=== PATIENT | female | born 1995 | race Caucasian/White ===

== ENCOUNTER → 2019-07-12 | Outpatient (CLI) | payer OTHER ==
--- NOTE | 2019-07-12 16:28 | Diagnostic Imaging Report ---
PROCEDURE: US Non-ob pelvis comp/trans. TECHNIQUE: Multiple real-time grayscale images were obtained of the pelvis in various projections endovaginally. Transabdominal imaging was also performed. INDICATION: Secondary amenorrhea. FINDINGS: Uterus measures 7.1 x 4.2 x 3.1 cm. Endometrial thickness is 9 mm. There are no discrete myometrial or endometrial masses. Both ovaries are normal in size and morphology and demonstrate normal blood flow. There are multiple follicles in both ovaries. There are no adnexal masses. There are some nabothian cysts. There is no free pelvic fluid. IMPRESSION: Essentially unremarkable pelvic ultrasound. Dictated by: Dictated on workstation # [id number]
== END ==
LOC: RAD 14:06
PROVIDERS: ATTEND Obstetrics & Gynecology
DX: N91.1 Secondary amenorrhea (principal)
CPT/HCPCS: 76830; 76856

== ENCOUNTER 2019-09-27 14:30 | Outpatient (RCR) | payer OTHER ==
[2019-08-17 14:58] LABS: BASOPHILS % (AUTO) 0 % (0-10); EOSINOPHILS # (AUTO) 0.2 10^3/uL (0.0-0.3); EOSINOPHILS % (AUTO) 2 % (0-10); HEMATOCRIT 43 % (35-52); HEMOGLOBIN 14.8 G/DL (11.5-16.0); LYMPHOCYTES # (AUTO) 2.3 X 10^3 (1.0-4.0); LYMPHOCYTES % (AUTO) 26 % (12-44); MEAN CORPUSCULAR HEMOGLOBIN 30 PG (25-34); MEAN CORPUSCULAR HGB CONC 34 G/DL (32-36); MEAN CORPUSCULAR VOLUME 87 FL (80-99); MONOCYTES # (AUTO) 0.6 X 10^3 (0.0-1.0); MONOCYTES % (AUTO) 7 % (0-12); NEUTROPHILS # (AUTO) 5.9 X 10^3 (1.8-7.8); NEUTROPHILS % (AUTO) 65 % (42-75); PLATELET COUNT 339 10^3/uL (130-400); RED CELL DISTRIBUTION WIDTH 12.9 % (10.0-14.5)
[2019-08-17 15:14] LABS: ABSOLUTE RETIC # 77 10e9/L (24-90); RETICULOCYTE % 1.51 % (0.50-2.40)
[2019-08-17 15:20] LABS: ALANINE AMINOTRANSFERASE 21 U/L (0-55); ALBUMIN 4.6 GM/DL (3.2-4.5); ALKALINE PHOSPHATASE 84 U/L (40-136); BILIRUBIN,TOTAL 0.2 MG/DL (0.1-1.0); BUN/CREATININE RATIO 15; CALCIUM 9.3 MG/DL (8.5-10.1); CARBON DIOXIDE 19 MMOL/L (21-32); CHLORIDE 106 MMOL/L (98-107); CREATININE SERUM 0.82 MG/DL (0.60-1.30); GFR ESTIMATED > 60; GLUCOSE 104 MG/DL (70-105); POTASSIUM 3.7 MMOL/L (3.6-5.0); SODIUM 138 MMOL/L (135-145); TOTAL PROTEIN 7.9 GM/DL (6.4-8.2)
[2019-09-27 14:49] LABS: BASOPHILS % (AUTO) 0 % (0-10); EOSINOPHILS # (AUTO) 0.2 10^3/uL (0.0-0.3); EOSINOPHILS % (AUTO) 3 % (0-10); HEMATOCRIT 42 % (35-52); HEMOGLOBIN 14.1 G/DL (11.5-16.0); LYMPHOCYTES # (AUTO) 2.2 X 10^3 (1.0-4.0); LYMPHOCYTES % (AUTO) 32 % (12-44); MEAN CORPUSCULAR HEMOGLOBIN 29 PG (25-34); MEAN CORPUSCULAR HGB CONC 34 G/DL (32-36); MEAN CORPUSCULAR VOLUME 85 FL (80-99); MEAN PLATELET VOLUME 9.7 FL (7.4-10.4); MONOCYTES # (AUTO) 0.5 X 10^3 (0.0-1.0); MONOCYTES % (AUTO) 7 % (0-12); NEUTROPHILS # (AUTO) 4.1 X 10^3 (1.8-7.8); NEUTROPHILS % (AUTO) 59 % (42-75); PLATELET COUNT 349 10^3/uL (130-400); RED CELL DISTRIBUTION WIDTH 12.9 % (10.0-14.5)
== END 2019-11-15 | disposition home or self-care (01) ==
LOC: ONC 14:30
PROVIDERS: ATTEND Internal Medicine Hematology & Oncology
DX: N91.1 Secondary amenorrhea (principal); R06.02 Shortness of breath; R51 Headache; Z90.89 Acquired absence of other organs; Z86.2 Personal history of diseases of the blood and blood-forming organs and certain disorders involving the immune mechanism
CPT/HCPCS: 80053; 82668; 82728; 83540; 85025; 85045; 99213; 99214

== ENCOUNTER → 2021-10-26 | Outpatient (CLI) | payer OTHER ==
[2021-10-26 09:13] LABS: ALBUMIN 4.1 GM/DL (3.2-4.5); BILIRUBIN,TOTAL 0.4 MG/DL (0.1-1.0); CALCIUM 9.1 MG/DL (8.5-10.1); CREATININE SERUM 0.74 MG/DL (0.60-1.30); POTASSIUM 3.8 MMOL/L (3.6-5.0); TOTAL PROTEIN 7.5 GM/DL (6.4-8.2)
== END ==
LOC: LAB 07:55
PROVIDERS: ATTEND Nurse Practitioner
DX: L65.9 Nonscarring hair loss, unspecified (principal); L68.0 Hirsutism
CPT/HCPCS: 36415; 80053; 83525; 84270; 84403; 84443

== ENCOUNTER → 2021-12-17 | Outpatient (CLI) | payer OTHER | LOC: LAB 09:58 | PROVIDERS: ATTEND Nurse Practitioner | DX: N93.8 Other specified abnormal uterine and vaginal bleeding (principal) | CPT/HCPCS: 36415; 82670; 83001; 83002; 84144; 84146 ==

== ENCOUNTER 2022-06-21 03:26 | Emergency (ER) | payer OTHER ==
[2022-06-21] MEDS ORDERED: ONDANSETRON 4 MG (ZOFRAN) ORAL DISSOLVE TAB SL STA (04:01)
[2022-06-21] MEDS ORDERED: ANTACID SUSP 30 ML UDC (MYLANTA) PO ONE (04:15)
[2022-06-21] MEDS ORDERED: LIDOCAINE 2% VISCOUS 15 ML UDC PO ONE (04:15)
[2022-06-21 05:14] VITALS: BP 131/90
[2022-06-21] MEDS ORDERED: PANTOPRAZOLE 40 MG (PROTONIX) TAB PO ONE (05:15)
--- NOTE | 2022-06-21 05:21 | ED Chest Pain ---
General Chief Complaint: Chest Pain Stated Complaint: CP Nursing Triage Note: PT ARRIVAL TO ER VIA PRIVATE VEHICLE WITH COMPLAINT OF CHEST PAIN. PT STATES THAT PAIN WOKE HER UP AT 0000. PT STATES THAT SHE TOOK 2 TUMS AND 1 PEPCID WITHOUT RELIEF. PT ALSO HAVING SOME TINGLING IN RIGHT SHOULDER AND BOTH HANDS. PAIN IS BURNING LIKE PAIN AT 7/10. Source: patient Exam Limitations: no limitations History of Present Illness Date Seen by Provider: Jun 21, 2022 Time Seen by Provider: 03:42 Initial Comments This 27-year-old young lady presents to the emergency room with complaints of chest pain in the central chest and radiating to her back that woke her around midnight. She was lying flat in bed when symptoms started. She took Tums without any improvement. She later took Pepcid also without improvement. She reported having some tingling's in her hands and right shoulder. The pain is described as a burning throbbing. She denies ever having had this problem in the past. She had a mild cough when the pain was more intense. She denies any fever or nausea. She reports quitting phentermine 1 to 2 weeks ago. Pain does not change with eating or drinking. Her last solid food was a cheeseburger at 1700. She denies any recent alcohol use. Her primary care provider is Leslie marie. She reports pain at present is 7/10. Allergies and Home Medications Allergies Coded Allergies: No Known Drug Allergies (Unverified , 06/21/22) Patient Home Medication List Home Medication List Reviewed: Yes Review of Systems Review of Systems Constitutional: no symptoms reported EENTM: No Symptoms Reported Respiratory: No Symptoms Reported Cardiovascular: See HPI Gastrointestinal: No Symptoms Reported Genitourinary: No Symptoms Reported Musculoskeletal: no symptoms reported Skin: no symptoms reported Psychiatric/Neurological: See HPI Endocrine: No Symptoms Reported Past Djwskgj-Lhfecl-Jomljc Hx Patient Social History Tobacco Use?: No Use of E-Cig and/or Vaping dev: No Substance use?: No Alcohol Use?: Yes Alcohol type: Beer, Hard Liquor, Wine Alcohol Frequency: Several times a month Pt feels they are or have been: No Immunizations Up To Date Influenza Vaccine Up-to-Date: Yes; Up-to-Date Second COVID19 Vaccination David: 12/27 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 [employer]: [employer] Past Medical History Surgeries: Yes Orthopedic (Shoulder x2, thumb) Respiratory: No Cardiac: No Neurological: No : No Reproductive Disorders: No Genitourinary: No Gastrointestinal: No Musculoskeletal: No Endocrine: No HEENT: No Cancer: No Psychosocial: No Integumentary: No Family Medical History Reviewed and Corrections made Heart Disease Physical Exam Vital Signs Vital Signs - First Documented 06/21/22 03:35 Temp 36.1 Pulse 102 Resp 20 B/P (MAP) 129/104 (112) Pulse Ox 100 O2 Delivery Room Air Capillary Refill : Less Than 3 Seconds Height, Weight, BMI Height: '" Weight: lbs. oz. kg; BMI Method: General Appearance: WD/WN, Anxious HEENT: TMs Normal, Normal ENT Inspection Neck: Normal Inspection Respiratory: Chest Non Tender, Lungs Clear, Normal Breath Sounds, No Accessory Muscle Use, No Respiratory Distress Cardiovascular: Regular Rate, Rhythm, No Edema, No Murmur Gastrointestinal: Normal Bowel Sounds, Non Tender, Soft Extremity: Normal Inspection, No Pedal Edema Neurologic/Psychiatric: Alert, Oriented x3, No Motor/Sensory Deficits, Normal Mood/Affect, patient account specialist II-XII Norm as Tested Skin: Normal Color, Warm/Dry Progress/Results/Core Measures Results/Orders My Orders Orders - ALBIN SWAN MD Ekg Tracing (06/21/22 03:40) Ondansetron Oral Dissolve Tab (Zofran (06/21/22 04:01) Lidocaine 2% Viscous 15 Ml (Xylocaine Vi (06/21/22 04:15) Antacid Suspension (Mylanta Suspension (06/21/22 04:15) Pantoprazole Tablet (Protonix Tablet) (06/21/22 05:15) Medications Given in ED Current Medications Medications Dose Ordered Sig/Fantasma Route Start Time Stop Time Status Last Admin Dose Admin Al Hydrox/Mg Hydrox/Simethicone 30 ml ONCE ONCE PO 06/21/22 04:15 06/21/22 04:16 DC 06/21/22 04:37 30 ML Lidocaine HCl 15 ml ONCE ONCE PO 06/21/22 04:15 06/21/22 04:16 DC 06/21/22 04:37 15 ML Pantoprazole Sodium 40 mg ONCE ONCE PO 06/21/22 05:15 06/21/22 05:17 DC 06/21/22 05:25 40 MG Vital Signs/I&O 06/21/22 06/21/22 03:35 05:14 Temp 36.1 Pulse 102 91 Resp 20 16 B/P (MAP) 129/104 (112) 131/90 Pulse Ox 100 99 O2 Delivery Room Air Room Air Blood Pressure Mean: 104 Progress Progress Note : Progress Note Pain significantly improved from 7/10 down to 3/10 with GI cocktail. Patient was pleased with the results. This suggests a gastroesophagitis etiology. See discharge instructions. Initial ECG Impression Date: Jun 21, 2022 Initial ECG Impression Time: 03:42 Initial ECG Rate: 77 Initial ECG Rhythm: Normal Sinus Initial ECG Intervals: Normal Initial ECG Impression: Normal Comment Normal sinus rhythm with no ST elevation or depression. No abnormal intervals or axis deviation. Departure Impression Primary Impression: Atypical chest pain Additional Impression: Gastroesophagitis Disposition: 01 HOME, SELF-CARE Condition: Improved Departure-Patient Inst. Decision time for Depature: 05:17 Referrals: NO,LOCAL PHYSICIAN (PCP/Family) Primary Care Physician Patient Instructions: Acid Reflux and Gastroesophageal Reflux Disease in Adults, Gastritis ED Add. Discharge Instructions: Your pain is likely due to gastroesophagitis and acid reflux based on your response to the numbing medication. You may continue taking Pepcid (famotidine) 20 mg twice daily. You may add omeprazole 20 mg twice daily for additional antiacid therapy. Continue these medications every day for the next 2 weeks. This will reduce stomach acid long enough to allow your stomach and esophagus to heal. Additionally, avoid the following: Eating large meals, eating close to bedtime, caffeine, carbonation, chocolate, citrus fruits and juices, tomato products, spicy foods, fatty/greasy foods, mints, NSAID medications such as ibuprofen or naproxen, tobacco, alcohol, or anything else you know irritates your stomach. Keeping your head elevated in an inclined position when you lay down and may also reduce acid reflux. For acute treatment of pain, you may take Tylenol (acetaminophen) up to 1000 mg every 6 hours as needed. Return to care if you have worsening symptoms despite following these instructions. All discharge instructions reviewed with patient and/or family. Voiced understanding. ALBIN SWAN MD Jun 21, 2022 05:21
== END 2022-06-21 05:30 | disposition home or self-care (01) ==
LOC: EDUNIT# 03:26 → ER 03:29
DX: K21.00 Gastro-esophageal reflux disease with esophagitis, without bleeding (principal)
CPT/HCPCS: 93005

== ENCOUNTER 2022-07-17 11:34 | Outpatient (CLI) | payer OTHER ==
[~2022-07-17] VITALS: Ht 165.1 cm; Wt 86.8 kg
[2022-07-17] MEDS ORDERED: TIRZ2.5P SQ (11:57)
[2022-07-18] MEDS ORDERED: HYDR-3817 PO (14:30)
== END 2022-07-17 12:01 | disposition home or self-care (01) ==
LOC: PREOP 11:34
PROVIDERS: ATTEND Surgery
DX: Z01.818 Encounter for other preprocedural examination (principal)

== ENCOUNTER 2022-07-18 11:42 | Day surgery (SDC) | payer BC, OTHER ==
[~2022-07-18] VITALS: Ht 165 cm; Wt 86.8 kg
[2022-07-18] VITALS (11 sets, daily range): BP systolic 86–139; BP diastolic 48–77
[~2022-07-18 11:42] MED LIST: TIRZ2.5P SQ
[2022-07-18] MEDS ORDERED: ceFAZolin INJECTION 2,000 MG in NS (IVPB) 50 ML IV ONE (13:30)
--- NOTE | 2022-07-18 14:29 | Progress Note-Pre Operative ---
Pre-Operative Progress Note Date H&P Reviewed: Jul 18, 2022 Time H&P Reviewed: 14:25 History & Physical: H&P Reviewed, Patient Examed Pre-Operative Diagnosis: Symptomatic anal fissure DENISE LAWLER APRN Jul 18, 2022 14:29
[2022-07-18] MEDS ORDERED: HYDR-3817 PO (14:30)
[2022-07-18] MEDS ORDERED: morphine INJ 10 MG/ML 1ML (SYR OR VIAL) IVP PRN (14:30)
[2022-07-18] MEDS ORDERED: ONDANSETRON 4 MG/2 ML (SDV) Z0FRAN IVP PRN (14:30)
[2022-07-18] MEDS ORDERED: HYDROcodone/APAP 5 MG/325 MG (LORTAB) TAB PO ONE (14:30)
[2022-07-18] MEDS ORDERED: ACETAMINOPHEN 325 MG TABLET PO PRN (14:30)
--- NOTE | 2022-07-18 14:31 | Discharge Inst-Surgical ---
D/C Lap Instructions-KIDO Reconcile Patient Problems Problems Reviewed?: Yes New, Converted, or Re-Newed RX: RX on Chart Follow Up Appt in 2 weeks Activity as tolerated No driving for 24 hours No driving while on pain medications Incentive Spirometry use every 2 hours while awake Regular Diet Symptoms to Report: Fever over 101 degree F, Nausea/Vomiting Infection Signs and Symptoms to report: Increased redness, Foul odor of wound, Increased drainage Bathing instructions: May shower Operative Area Clean/Dry; Keep incision clean/dry If any problems/questions: Contact your physician or go to Emergency Room DENISE LAWLER APRN Jul 18, 2022 14:30
[2022-07-18] MEDS ORDERED: LIDOCAINE PF 2% 5 ML (XYLOCAINE) VIAL ONE (15:01)
[2022-07-18] MEDS ORDERED: proPOfol 200 MG/20 ML (DIPRIVAN) VIAL IV ONE (15:01)
[2022-07-18] MEDS ORDERED: MIDAZOLAM 2 MG/2 ML (VERSED) VIAL ONE (15:01)
[2022-07-18] MEDS ORDERED: fentaNYL INJ 100 MCG/2 ML AMP ONE ×2 (15:01→16:02)
[2022-07-18] MEDS: LACTATED RINGERS 1,000 ML IV PRN ×2 (15:09→16:24)
[2022-07-18] MEDS ORDERED: LIDOCAINE/EPI 1%-1:100,000 (XYLOCAINE) 10 ML ONE ×2 (15:22→16:04)
[2022-07-18] MEDS ORDERED: BUPIVACAINE 0.5% 30 ML (SENSORCAINE) VIAL ONE (15:22)
[2022-07-18] MEDS ORDERED: KETOROLAC 30 MG/ML VIAL ONE (16:35)
[2022-07-18] MEDS ORDERED: SEVOFLURANE (ULTANE) 15 ML INHAL SOLN ONE (16:35)
--- NOTE | 2022-07-18 16:39 | Progress Note-Post Operative ---
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 Procedure & Operative Findings Date of Procedure 07/18/22 Procedure Performed/Findings anal exam under anesthesia, pudendal nerve block, fissurectomy, formal hemorrhoidectomy single column. Anesthesia Type general LMA with pudendal nerve block and local Estimated Blood Loss Estimated blood loss (mL): minimal Specimens/Packing Specimens Removed anal fissure, ext and int hemorrhoidal cushion. GARRET BUENROSTRO MD Jul 18, 2022 16:39
--- NOTE | 2022-07-18 17:08 | Anesthesia-General Post-Op ---
General Patient Condition Mental Status/LOC: Same as Preop Cardiovascular: Satisfactory Nausea/Vomiting: Absent Respiratory: Satisfactory Pain: Controlled Complications: Absent Post Op Complications Complications None Follow Up Care/Instructions Patient Instructions None needed. Anesthesia/Patient Condition Patient Condition Patient is doing well, no complaints, stable vital signs, no apparent adverse anesthesia problems. No complications reported per nursing. JAZMYNE HARRELL CRNA Jul 18, 2022 17:08
[2022-07-18] MEDS: ONDANSETRON 4 MG/2 ML (SDV) Z0FRAN IVP PRN ×2 (17:11→17:47)
[2022-07-18] MEDS ORDERED: fentaNYL INJ 100 MCG/2 ML AMP IVP ONE (17:15)
[2022-07-18] MEDS ORDERED: morphine INJ 10 MG/ML 1ML (SYR OR VIAL) IVP ONE (17:15)
[2022-07-18] MEDS ORDERED: morphine INJ 10 MG/ML 1ML (SYR OR VIAL) ONE (17:21)
--- NOTE | 2022-07-19 02:10 | OPERATIVE REPORT ---
DATE OF SERVICE: 07/18/2022 ATTENDING LOSS PREVENTION LEAD: Leslie Hong APRN PREOPERATIVE DIAGNOSIS: Symptomatic posterior anal fissure, symptomatic between stage II and III superior and lateral external and internal hemorrhoidal column. POSTOPERATIVE DIAGNOSIS: same PROCEDURE: Anal exam under anesthesia, pudendal nerve block, fissurectomy, formal Ascencio closed hemorrhoidectomy of a single column. SURGEON: Lio Bustillo MD ANESTHESIOLOGIST: Sonny Hernández APRN TYPE OF ANESTHESIA: General laryngeal mask airway, pudendal nerve block and local. ESTIMATED BLOOD LOSS: Minimal. FINDINGS: same DISPOSITION: The patient tolerated the procedure well. INDICATIONS: The patient is a 27-year-old female known to us. She states that in the past 3 months, she has had some issues with rectal pain, pressure sensation as well as red blood per rectum. She states that this has worsened over time. She reports that she has had a longstanding history of hard stools and constipation in the past. We tried medical management with MiraLax and hydrocortisone cream as well as lidocaine gel and she has been trying sitz baths. However, she continues to have pain, especially after every bowel movement. Upon examination, she was found to have an anal fissure at the 12 o'clock position with the patient in prone. She was also found to have a between stage II and III external and internal hemorrhoidal cushion at approximately the 11 o'clock position, which she also wanted removed. DESCRIPTION OF PROCEDURE: The patient was brought to the operating room and laid supine on the table. After adequate IV anesthetic medications and general laryngeal mask airway intubation, the patient was placed in lithotomy position and the perineum prepped and draped in standard surgical fashion. Bilateral lidocaine with epinephrine approximately 1 cm below the ischial tuberosity bilaterally. After the anal sphincters relaxed, a self-retaining speculum was placed. The 12 o'clock position did identify a sentinel pile as well as an anal fissure. We first proceeded with excision of this and a 3-0 Vicryl suture was placed in the anal mucosa proximal to this. We then proceeded with excision of the sentinel pile at the anoderm as well as the entire fissure using a Sonicision, identifying the anal sphincters and preserving them the whole time. Good hemostasis was observed. Using the previously placed suture, the opening was closed and reapproximating the mucosa as well as the anoderm with that running 3-0 Vicryl suture. We then proceeded with injection of the hemorrhoidal cushion at the 11 o'clock position. We then proceeded to place a stay suture just above the internal hemorrhoidal cushion with a 3-0 Vicryl suture. The external and internal hemorrhoidal cushion was then excised en bloc using the Sonicision. Good hemostasis was observed and with this stay suture the mucosa and anoderm were reapproximated in a running fashion with visualization of good hemostasis. The anal canal was then filled with a hemostatic plug made out of Gelfoam as well as Surgicel, followed by 4 x 4 gauze, ABD pad and mesh shorts. The patient tolerated the procedure well. We will recommend that she continue with sitz baths 4 times a day as well as stool softeners as well as fiber supplements to promote soft stools on a daily basis. Again, she will need to do sitz baths 4 times a day and to place a gauze dressing to keep the area clean and dry. We will have her start a compound of a calcium channel yanique to help with relaxation of the anal sphincters. Job ID: [id number] DocumentID: [id number] Dictated Date: 07/18/2022 16:47:19 Title Coordinator Date: 07/19/2022 01:58:00 Dictated By: MD KAVITA FARRIS
== END 2022-07-18 19:05 | disposition home or self-care (01) ==
LOC: SDC 11:42
PROVIDERS: ATTEND Surgery
DX: K60.2 Anal fissure, unspecified (principal); K64.4 Residual hemorrhoidal skin tags; K64.2 Third degree hemorrhoids
CPT/HCPCS: 84703; 87081